=== PATIENT | female | born 2000 | race Caucasian/White ===

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

== ENCOUNTER 2019-01-14 22:01 | Emergency (ER) | payer OTHER ==
[~2019-01-14] VITALS: Ht 162.6 cm; Wt 54.5 kg
[2019-01-14 22:01] VITALS: BP 130/70
[~2019-01-14 22:01] MED LIST changes: +ACET30TAB PO; +COLA100C5 PO; +HYDR25OIN TOP
[2019-01-14] MEDS ORDERED: PRENTAB45 PO (22:42)
== END 2019-01-14 22:58 | disposition home or self-care (01) ==
LOC: M ED 22:01
DX: Z32.01 Encounter for pregnancy test, result positive (principal); Z87.891 Personal history of nicotine dependence; Z88.0 Allergy status to penicillin

== ENCOUNTER → 2019-01-30 | Outpatient (CLI) | payer OTHER ==
[~2019-01-30] MED LIST changes: +PRENTAB45 PO
--- NOTE | 2019-01-30 16:22 | REP ---
FIRST TRIMESTER ULTRASOUND: Real-time sonographic evaluation of the gravid uterus is performed utilizing transabdominal and endovaginal technique. There is a single living intrauterine gestation. The estimated gestational age is 6 weeks 3 days based on crown-rump length 6 mm. EDC 11/22/2018. heart rate 112 beats per minute. Subchorionic hemorrhage is identified, measuring 18 x 4 x 7 mm. Cystic structure of the left ovary probably represents a corpus luteum measuring 4.0 x 3.8 x 3.7 cm. There is no evidence of ovarian torsion with duplex Doppler evaluation. Electronically Signed by Ayo Hancock MD 01/30/2019 04:58 P
== END ==
LOC: M RAD 14:18
PROVIDERS: ATTEND Nurse Practitioner Family
DX: Z32.01 Encounter for pregnancy test, result positive (principal); Z3A.01 Less than 8 weeks gestation of pregnancy

== ENCOUNTER 2019-07-29 04:27 | Emergency (ER) | payer OTHER ==
[~2019-07-29] VITALS: Ht 162.6 cm; Wt 120.0 kg
[~2019-07-29 04:27] MED LIST changes: +ACET-716 PO; -ACET30TAB PO; +TRAZ1TAB10 PO; -TRAZO50TA PO
[2019-07-29] MEDS ORDERED: XANA1TAB2 PO (04:37)
[2019-07-29 06:34] VITALS: BP 104/55
== END 2019-07-29 06:37 | disposition home or self-care (01) ==
LOC: M ED 04:27
DX: F41.0 Panic disorder [episodic paroxysmal anxiety] (principal); Z63.0 Problems in relationship with spouse or partner; Z79.899 Other long term (current) drug therapy; Z88.0 Allergy status to penicillin

== ENCOUNTER 2019-07-30 00:10 | Emergency (ER) | payer OTHER ==
[~2019-07-30] VITALS: Ht 162.6 cm; Wt 54.1 kg
[~2019-07-30 00:10] MED LIST changes: +XANA1TAB2 PO
[2019-07-30 00:12] VITALS: BP 128/90
== END 2019-07-30 04:44 | disposition left against medical advice (07) ==
LOC: M ED 00:10
DX: Z53.29 Procedure and treatment not carried out because of patient's decision for other reasons (principal)

== ENCOUNTER 2019-11-14 10:30 | Emergency (ER) | payer MEDICAID, OTHER ==
[~2019-11-14] VITALS: Ht 162.6 cm; Wt 54.7 kg
[2019-11-14] MEDS ORDERED: ACETAMINOPHEN TAB 650MG DOSE (2X325MG) PO ONE (11:00)
[2019-11-14 11:44] LABS: INFLUENZA A AMPLIFICATION NEGATIVE (NEGATIVE); INFLUENZA B AMPLIFICATION POSITIVE (NEGATIVE)
[2019-11-14] MEDS ORDERED: OSEL75CA PO (12:04)
[2019-11-14 12:11] VITALS: BP 137/72
== END 2019-11-14 12:16 | disposition home or self-care (01) ==
LOC: M ED 10:30
DX: J10.89 Influenza due to other identified influenza virus with other manifestations (principal); F33.9 Major depressive disorder, recurrent, unspecified; Z88.0 Allergy status to penicillin; F17.200 Nicotine dependence, unspecified, uncomplicated

== ENCOUNTER → 2019-12-25 | Outpatient (REF) | payer OTHER ==
[~2019-12-25] MED LIST changes: +OSEL75CA PO
[2019-12-25 21:19] LABS: CHLAMYDIA DNA AMPLIFICATION NEGATIVE (NEGATIVE); GC DNA AMPLIFICATION NEGATIVE (NEGATIVE)
== END ==
LOC: M LAB REF 18:37
PROVIDERS: ATTEND Physician Assistant
DX: Z20.2 Contact with and (suspected) exposure to infections with a predominantly sexual mode of transmission (principal)

== ENCOUNTER → 2020-04-04 | Outpatient (REF) | payer OTHER ==
[2020-04-04 22:20] LABS: CHLAMYDIA DNA AMPLIFICATION POSITIVE (NEGATIVE); GC DNA AMPLIFICATION NEGATIVE (NEGATIVE)
== END ==
LOC: M LAB REF 19:49
PROVIDERS: ATTEND Physician Assistant Medical
DX: Z11.3 Encounter for screening for infections with a predominantly sexual mode of transmission (principal)

== ENCOUNTER → 2020-05-01 | Outpatient (REF) | payer OTHER ==
[2020-05-01 19:04] LABS: APPEARANCE, URINE HAZY (CLEAR); BACTERIA, URINE AUTO 1+ (NEGATIVE); BILIRUBIN, URINE AUTO NEGATIVE (NEGATIVE); BLOOD, URINE BLOOD NEGATIVE (NEGATIVE); COLOR, URINE YELLOW (YELLOW); GLUCOSE, URINE (UA) AUTO NEGATIVE (NEGATIVE); KETONE, URINE AUTO NEGATIVE (NEGATIVE); LEUKOCYTE ESTERASE, URINE AUTO 1+ (NEGATIVE); MUCUS, URINE SMALL (NEGATIVE); NITRITE, URINE AUTO NEGATIVE (NEGATIVE); PROTEIN, URINE AUTO NEGATIVE (NEGATIVE); RBC, URINE AUTO 1 /HPF (0-3); SPECIFIC GRAVITY URINE AUTO 1.025 (1.002-1.035); SQUAMOUS EPITHELIAL CELL UR AU 6 /HPF (0-6); WBC, URINE AUTO 17 /HPF (0-3)
== END ==
LOC: M LAB REF 17:39
PROVIDERS: ATTEND Physician Assistant Medical
DX: N39.0 Urinary tract infection, site not specified (principal)

== ENCOUNTER 2020-05-04 13:51 | Emergency (ER) | payer OTHER ==
[~2020-05-04] VITALS: Ht 162.6 cm; Wt 55.1 kg
[2020-05-04] MEDS ORDERED: NS 1,000 ML IV ONE (14:45)
[2020-05-04] MEDS ORDERED: KETOROLAC 30 MG/ML 1ML VIAL IV ONE (14:45)
[2020-05-04] MEDS ORDERED: ONDANSETRON 4MG/2ML VIAL IV ONE (14:45)
[2020-05-04] MEDS ORDERED: CIPROFLOXACIN 400 MG in IV 1 EA IV ONE (15:00)
[2020-05-04 15:18] LABS: BASO # 0.1 10^3/uL (0.0-0.2); BASO % 0.6 % (0.0-1.0); EOS # 0.1 10^3/uL (0.0-0.5); EOS % 0.9 % (0.0-3.0); HEMATOCRIT 42.7 % (36.0-47.0); HEMOGLOBIN 14.2 g/dl (12.0-15.5); LYMPH # 2.5 10^3/uL (1.5-5.0); LYMPH % 26.1 % (24.0-44.0); MEAN CORPUSCULAR HEMOGLOBIN 30.5 pg (27.0-33.0); MEAN CORPUSCULAR HGB CONC 33.3 g/dl (32.0-36.5); MEAN CORPUSCULAR VOLUME 91.6 fl (80.0-96.0); MONO # 0.9 10^3/uL (0.0-0.8); MONO % 9.3 % (0.0-5.0); NEUTROPHILS # 6.1 10^3/uL (1.5-8.5); NEUTROPHILS % 62.7 % (36.0-66.0); PLATELET COUNT, AUTOMATED 388 10^3/uL (150-450); RED BLOOD COUNT 4.66 10^6/uL (4.00-5.40); WHITE BLOOD COUNT 9.7 10^3/uL (4.0-10.0)
[2020-05-04] MEDS ORDERED: ISOVUE-370 76% 100ML VIAL As Ordered ONE (15:43)
[2020-05-04 15:45] LABS: ALBUMIN 4.3 GM/DL (3.2-5.2); BILIRUBIN,DIRECT 0.1 MG/DL (0.0-0.2); BILIRUBIN,TOTAL 0.4 MG/DL (0.2-1.0); TOTAL PROTEIN 7.8 GM/DL (6.4-8.2)
--- NOTE | 2020-05-04 16:34 | REP ---
CT ABDOMEN/PELVIS WITHOUT CONTRAST: HISTORY: Right-sided flank pain. No comparison study. CT FINDINGS: Digital preliminary biomedical specialist radiograph demonstrates a normal bowel gas pattern. Bilateral nipple jewelry is noted incidentally. There is a nodular opacity partially imaged at the uppermost slice in the imaging field of view in the left lower lobe of the lung. This measures 1.1 cm in diameter. It is not clear if it is a ground-glass opacity or a solid nodule and it is not completely imaged. Lung bases are otherwise clear on axial images. There is a calcified granulomatous lymph node adjacent to the esophagus in the diaphragmatic hiatus. This calcified lymph node measures 1.8 cm in greatest diameter. The liver and the spleen are normal in size, homogeneous in texture. No abnormalities noted in the gallbladder or within the pancreas. Normal adrenal glands are seen. No retroperitoneal mass is seen. There is a calcification in a normal-sized aortocaval lymph node in the upper retroperitoneum. No other rachell enlargement is seen. A retroverted retroflexed uterus is seen. No uterine or ovarian mass is seen. Urinary bladder is unremarkable. There is a tiny quantity of air in the urinary bladder, question recent instrumentation. There is a small cystic area in the right ovary 1.8 cm in diameter, consistent with an ovarian follicle. Normal appendix is seen posterior to the cecum deep in the pelvis. There is no evidence of obstruction or large or small bowel dilation. No evidence of free air is seen. The kidneys are morphologically intact. No intrarenal nephrolithiasis is seen. No hydronephrosis is noted. Bone window settings show no bony destructive lesion. IMPRESSION: Granulomatous calcific lymph node residuals at the diaphragmatic hiatus and in an aortocaval retroperitoneal lymph node. There is a nodular density incompletely seen in the left lower lobe of the lung at the top of the imaging field of view. This is consistent with a pulmonary nodule. Consider chest CT. Retroverted retroflexed uterus. Small follicle cyst, right ovary. Normal appendix. Otherwise negative. Electronically Signed by Yoni Cote MD 05/04/2020 05:12 P
[2020-05-04 17:38] LABS: BILIRUBIN, URINE MANUAL NEGATIVE (NEGATIVE); GLUCOSE, URINE (UA) MANUAL NEGATIVE (NEGATIVE); KETONE, URINE MANUAL NEGATIVE (NEGATIVE); UROBILINOGEN, URINE MANUAL NORMAL (NORMAL)
[2020-05-04 17:51] LABS: BACTERIA, URINE NONE SEEN; HYALINE CAST, URINE NONE SEEN /lpf (0-1); RBC, URINE NONE SEEN /hpf (0-3); SQUAMOUS EPITHELIAL CELL URINE NONE SEEN /hpf (SMALL AMT)
[2020-05-04 18:05] VITALS: BP 118/64
== END 2020-05-04 18:11 | disposition home or self-care (01) ==
LOC: M ED 13:51
DX: R11.2 Nausea with vomiting, unspecified (principal); R10.9 Unspecified abdominal pain; F33.9 Major depressive disorder, recurrent, unspecified; F41.9 Anxiety disorder, unspecified; Z88.0 Allergy status to penicillin
CPT/HCPCS: 74176; 80047; 80076; 81000; 81015; 83605; 83690; 84702; 85025; 87086; 96361; 96365; 99284; J0744

== ENCOUNTER → 2020-05-06 | Outpatient (REF) | payer OTHER ==
[2020-05-06 16:38] LABS: CHLAMYDIA DNA AMPLIFICATION NEGATIVE (NEGATIVE); GC DNA AMPLIFICATION NEGATIVE (NEGATIVE)
== END ==
LOC: M LAB REF 14:43
PROVIDERS: ATTEND Physician Assistant
DX: N89.8 Other specified noninflammatory disorders of vagina (principal); Z20.2 Contact with and (suspected) exposure to infections with a predominantly sexual mode of transmission

== ENCOUNTER → 2020-05-27 | Outpatient (REF) | payer OTHER ==
[2020-05-27 20:53] LABS: CHLAMYDIA DNA AMPLIFICATION NEGATIVE (NEGATIVE); GC DNA AMPLIFICATION NEGATIVE (NEGATIVE)
== END ==
LOC: M LAB REF 17:00
PROVIDERS: ATTEND Physician Assistant
DX: Z11.3 Encounter for screening for infections with a predominantly sexual mode of transmission (principal)

== ENCOUNTER → 2020-06-17 | Outpatient (CLI) | payer OTHER ==
--- NOTE | 2020-07-31 13:18 | REP ---
CT CHEST WITHOUT CONTRAST HISTORY: Incidental pulmonary nodule. Chest images taken during abdominal CT study 05/04/2020, showed an incompletely visualized nodular opacity in the left lower lobe. CT FINDINGS: Digital preliminary ostomy rn radiograph demonstrates a dextroconvex lower thoracic curvature. Nipple jewelry is noted. Axial CT images confirm the presence of a left lower lobe pulmonary nodule. This measures 1.5 cm in greatest diameter and is seen posteriorly. It contains a benign pattern of central calcification consistent with a granuloma. No other pulmonary nodule is appreciated. No hilar or mediastinal mass or adenopathy is observed. There are some granulomatous lymph node calcifications, however, in the subcarinal region just to the left of midline in the left infrahilar region and in a rachell calcific deposit at the gastroesophageal junction/diaphragmatic hiatus. No hilar mass or adenopathy is seen. No adrenal lesion observed. No bony destructive lesion is seen. IMPRESSION: Old granulomatous changes. Left lower lobe centrally calcified benign granuloma. Granulomatous lymph node calcifications. No active disease. Dextroconvex thoracic scoliosis noted incidentally. MTDD
== END ==
LOC: M RAD 09:30
PROVIDERS: ATTEND Student in an Organized Health Care Education/Training Program
DX: R91.1 Solitary pulmonary nodule (principal); M41.54 Other secondary scoliosis, thoracic region

== ENCOUNTER 2020-08-11 09:31 | Emergency (ER) | payer OTHER ==
[~2020-08-11] VITALS: Ht 162.6 cm; Wt 57.2 kg
[2020-08-11] MEDS ORDERED: NS 1,000 ML IV ONE (10:45)
[2020-08-11 11:45] LABS: BASO # 0.1 10^3/uL (0.0-0.2); BASO % 0.6 % (0.0-1.0); EOS # 0.2 10^3/uL (0.0-0.5); EOS % 1.8 % (0.0-3.0); HEMATOCRIT 35.9 % (36.0-47.0); HEMOGLOBIN 12.1 g/dl (12.0-15.5); LYMPH # 1.6 10^3/uL (1.5-5.0); LYMPH % 19.2 % (24.0-44.0); MEAN CORPUSCULAR HEMOGLOBIN 30.7 pg (27.0-33.0); MEAN CORPUSCULAR HGB CONC 33.7 g/dl (32.0-36.5); MEAN CORPUSCULAR VOLUME 91.1 fl (80.0-96.0); MONO # 0.7 10^3/uL (0.0-0.8); MONO % 8.4 % (0.0-5.0); NEUTROPHILS # 5.8 10^3/uL (1.5-8.5); NEUTROPHILS % 69.8 % (36.0-66.0); PLATELET COUNT, AUTOMATED 279 10^3/uL (150-450); RED BLOOD COUNT 3.94 10^6/uL (4.00-5.40); WHITE BLOOD COUNT 8.3 10^3/uL (4.0-10.0)
--- NOTE | 2020-08-11 12:38 | REPVR ---
PROCEDURE INFORMATION: Exam: US First Trimester, Transabdominal and US , Transvaginal Exam date and time: 08/11/2020 12:09 PM Age: 20 years old Clinical indication: Lmp or gestational age (in weeks): 5 weeks; Antepartum complications; Bleeding; ; Additional info: Vaginal bleeding TECHNIQUE: Imaging protocol: Real-time transabdominal obstetrical ultrasound of the maternal pelvis and a first trimester , less than 14 weeks 0 days, with image documentation. Transvaginal imaging was used for better evaluation of the fetus and adnexa. COMPARISON: No relevant prior studies available. FINDINGS: Gestation: No intrauterine gestation was identified. MATERNAL: Uterus: The uterus measures 9.0 x 4.5 x 5.5 cm transabdominally and 8.7 x 5.1 x 5.6 cm transvaginally. It is homogeneous in echotexture, without demonstrated lesion. The endometrium measures 8 mm in thickness transabdominally and 14 mm in thickness transvaginally. Cervix: Unremarkable. Right adnexa: The right ovary measures 2.7 x 1.6 x 1.7 cm transabdominally and 1.8 x 2.0 x 1.8 cm transvaginally, and appears unremarkable. Left adnexa: The left ovary measures 1.9 x 2.7 x 1.9 cm transabdominally and 2.7 x 1.8 x 1.2 cm transvaginally, and appears unremarkable. Intraperitoneal space: No significant free fluid is demonstrated in the pelvis, nor is any extraovarian adnexal mass. IMPRESSION: 1. No intrauterine or extrauterine gestation identified. 2. Endometrium 14 mm in thickness. Electronically signed by: Cuong Amado On 08/11/2020 12:38:35 PM
[2020-08-11 13:03] LABS: CHLAMYDIA DNA AMPLIFICATION NEGATIVE (NEGATIVE); GC DNA AMPLIFICATION NEGATIVE (NEGATIVE)
[2020-08-11 13:13] VITALS: BP 113/55
== END 2020-08-11 13:39 | disposition home or self-care (01) ==
LOC: M ED 09:31
DX: O36.80X0 Pregnancy with inconclusive fetal viability, not applicable or unspecified (principal); O26.851 Spotting complicating pregnancy, first trimester; Z88.0 Allergy status to penicillin; Z3A.01 Less than 8 weeks gestation of pregnancy

== ENCOUNTER → 2020-09-02 | Outpatient (REF) | payer OTHER ==
[2020-09-02 22:09] LABS: AMORPHOUS SEDIMENT SMALL (NEGATIVE); APPEARANCE, URINE CLOUDY (CLEAR); BACTERIA, URINE AUTO 1+ (NEGATIVE); BILIRUBIN, URINE AUTO NEGATIVE (NEGATIVE); BLOOD, URINE BLOOD NEGATIVE (NEGATIVE); COLOR, URINE YELLOW (YELLOW); GLUCOSE, URINE (UA) AUTO NEGATIVE (NEGATIVE); KETONE, URINE AUTO NEGATIVE (NEGATIVE); LEUKOCYTE ESTERASE, URINE AUTO 2+ (NEGATIVE); MUCUS, URINE SMALL (NEGATIVE); NITRITE, URINE AUTO NEGATIVE (NEGATIVE); PROTEIN, URINE AUTO NEGATIVE (NEGATIVE); RBC, URINE AUTO 2 /HPF (0-3); SQUAMOUS EPITHELIAL CELL UR AU 12 /HPF (0-6); UROBILINOGEN, URINE AUTO 0.2 mg/dL (0.0-2.0); WBC, URINE AUTO 5 /HPF (0-3)
== END ==
LOC: M LAB REF 21:47
PROVIDERS: ATTEND Physician Assistant
DX: N39.0 Urinary tract infection, site not specified (principal); A74.9 Chlamydial infection, unspecified; B00.9 Herpesviral infection, unspecified

== ENCOUNTER 2020-11-28 02:04 | Emergency (ER) | payer OTHER ==
[2020-11-28 02:29] VITALS: BP 130/76
--- NOTE | 2020-11-28 03:14 | REPVR ---
PROCEDURE INFORMATION: Exam: XR Left Tibia and Fibula Exam date and time: 11/28/2020 2:33 AM Age: 20 years old Clinical indication: Pain; Ankle; Left; Additional info: FX? TECHNIQUE: Imaging protocol: XR Left tibia and fibula. Views: 2 views. COMPARISON: No relevant prior studies available. FINDINGS: Bones/joints: Normal. Soft tissues: Normal. IMPRESSION: No acute findings. Electronically signed by: Srini Mccormick On 11/28/2020 03:14:28 AM
--- NOTE | 2020-11-28 03:14 | REPVR ---
PROCEDURE INFORMATION: Exam: XR Left Ankle Exam date and time: 11/28/2020 2:33 AM Age: 20 years old Clinical indication: Pain; Ankle; Left; Additional info: FX? TECHNIQUE: Imaging protocol: XR Left ankle. Views: 3 or more views. COMPARISON: No relevant prior studies available. FINDINGS: Bones/joints: Normal. Soft tissues: Normal. IMPRESSION: No acute findings. Electronically signed by: Srini Mccormick On 11/28/2020 03:13:57 AM
== END 2020-11-28 03:07 | disposition home or self-care (01) ==
LOC: M ED 02:04
DX: S93.402A Sprain of unspecified ligament of left ankle, initial encounter (principal); X58.XXXA Exposure to other specified factors, initial encounter; Y92.410 Unspecified street and highway as the place of occurrence of the external cause; Z88.0 Allergy status to penicillin

== ENCOUNTER → 2021-03-15 | Outpatient (REF) | payer OTHER | LOC: M LAB REF 17:08 | PROVIDERS: ATTEND Physician Assistant Medical | DX: Z20.2 Contact with and (suspected) exposure to infections with a predominantly sexual mode of transmission (principal) ==

== ENCOUNTER → 2021-05-25 | Outpatient (CLI) | payer OTHER ==
--- NOTE | 2021-05-25 18:27 | REPVR ---
PROCEDURE INFORMATION: Exam: CT Head Without Contrast Exam date and time: 05/25/2021 5:35 PM Age: 21 years old Clinical indication: Other: Nicolas judith of orbit dermoid cyst TECHNIQUE: Imaging protocol: Computed tomography of the head without contrast. Axial and coronal reformatted images were created and reviewed. Radiation optimization: All CT scans at this facility use at least one of these dose optimization techniques: automated exposure control; mA and/or kV adjustment per patient size (includes targeted exams where dose is matched to clinical indication); or iterative reconstruction. COMPARISON: CT Spine,cervical w/o contrast 12/31/2014 6:43 PM FINDINGS: Brain: No CT evidence of acute intracranial hemorrhage or acute territorial infarction. No significant mass effect or midline shift. Basal cisterns patent. Cerebral ventricles: Normal in size and configuration. Paranasal sinuses: Mild polypoid right ethmoid, right frontal and right sphenoid sinus mucosal thickening. Mastoid air cells: Grossly unremarkable. Bones/joints: No acute osseous abnormality. Soft tissues: 1 x 0.8 cm ovoid, fat density lesion overlying the right anterior zygoma (series 201, image 4), possibly secondary to a superficial dermoid cyst. IMPRESSION: 1. 1 x 0.8 cm ovoid, fat density lesion overlying the right anterior zygoma, possibly secondary to a superficial dermoid cyst. 2. Additional findings, as above. Electronically signed by: Cuong Beltran On 05/25/2021 18:26:59 PM
--- NOTE | 2021-05-25 18:27 | REPVR ---
PROCEDURE INFORMATION: Exam: CT Orbits Without Contrast Exam date and time: 05/25/2021 5:35 PM Age: 21 years old Clinical indication: Other: Nicolas judith of orbit dermoid cyst TECHNIQUE: Imaging protocol: Computed tomography images of the orbits without contrast. Axial, coronal and sagittal reformatted images were created and reviewed. Radiation optimization: All CT scans at this facility use at least one of these dose optimization techniques: automated exposure control; mA and/or kV adjustment per patient size (includes targeted exams where dose is matched to clinical indication); or iterative reconstruction. COMPARISON: CT Spine,cervical w/o contrast 12/31/2014 6:43 PM FINDINGS: Orbital cavity: Orbits are normal. Globes are unremarkable. Paranasal sinuses: Mild polypoid right ethmoid, right frontal and right sphenoid sinus mucosal thickening. Bones/joints: No acute fracture. Soft tissues: 1 x 0.8 cm ovoid, fat density lesion overlying the right anterior zygoma (series 201, image 4), possibly secondary to a superficial dermoid cyst. IMPRESSION: 1. 1 x 0.8 cm ovoid, fat density lesion overlying the right anterior zygoma, possibly secondary to a superficial dermoid cyst. 2. Additional findings, as above. Electronically signed by: Cuong Beltran On 05/25/2021 18:27:10 PM
== END ==
LOC: M RAD 17:18
PROVIDERS: ATTEND Physician Assistant
DX: D31.61 Benign neoplasm of unspecified site of right orbit (principal)

== ENCOUNTER 2021-06-27 04:17 | Emergency (ER) | payer OTHER ==
[~2021-06-27] VITALS: Ht 162.6 cm; Wt 53.6 kg
[2021-06-27 04:36] VITALS: BP 120/55
[2021-06-27 05:34] LABS: MEAN CORPUSCULAR HEMOGLOBIN 30.1 pg (27.0-33.0); MEAN CORPUSCULAR HGB CONC 34.2 g/dl (32.0-36.5); PLATELET COUNT, AUTOMATED 295 10^3/uL (150-450); RED BLOOD COUNT 4.32 10^6/uL (4.00-5.40); WHITE BLOOD COUNT 6.9 10^3/uL (4.0-10.0)
[2021-06-27 05:55] LABS: AMPHETAMINES LEVEL URINE NEGATIVE (NEGATIVE); BARBITURATES URINE NEGATIVE (NEGATIVE); BENZODIAZEPINES URINE NEGATIVE (NEGATIVE); CANNABINOIDS URINE NEGATIVE (NEGATIVE); COCAINE METABOLITE URINE NEGATIVE (NEGATIVE); METHADONE URINE NEGATIVE (NEGATIVE); OPIATES URINE NEGATIVE (NEGATIVE); PHENCYCLIDINE URINE NEGATIVE (NEGATIVE)
[2021-06-27 06:05] LABS: ACETAMINOPHEN LEVEL < 2.0 UG/ML (10.0-30.0); ALBUMIN 3.9 GM/DL (3.2-5.2); ALT/SGPT 23 U/L (12-78); BILIRUBIN,DIRECT < 0.1 MG/DL (0.0-0.2); BILIRUBIN,TOTAL 0.3 MG/DL (0.2-1.0); BLOOD UREA NITROGEN 8 MG/DL (7-18); CALCIUM LEVEL 8.5 MG/DL (8.5-10.1); CARBON DIOXIDE LEVEL 23 MEQ/L (21-32); CHLORIDE LEVEL 112 MEQ/L (98-107); CREATININE FOR GFR 0.59 MG/DL (0.55-1.30); ETHYL ALCOHOL (ETHANOL) 0.093 % (0.000-0.010); GLOMERULAR FILTRATION RATE > 60.0 (>60); GLUCOSE, FASTING 114 MG/DL (70-100); POTASSIUM SERUM 3.8 MEQ/L (3.5-5.1); SALICYLATE LEVEL < 1.7 MG/DL (5.0-30.0); SODIUM LEVEL 141 MEQ/L (136-145); TOTAL PROTEIN 7.3 GM/DL (6.4-8.2)
[2021-06-27 06:12] LABS: HCG, SERUM QUALITATIVE NEGATIVE (NEGATIVE)
== END 2021-06-27 09:22 | disposition home or self-care (01) ==
LOC: M ED 04:17
DX: F10.14 Alcohol abuse with alcohol-induced mood disorder (principal); Y90.0 Blood alcohol level of less than 20 mg/100 ml; F43.20 Adjustment disorder, unspecified

== ENCOUNTER 2022-07-24 21:09 | Emergency (ER) | payer OTHER ==
[~2022-07-24] VITALS: Ht 162.6 cm; Wt 57.3 kg
[2022-07-24] MEDS ORDERED: IBUP200C25 PO (21:29)
[2022-07-24 21:55] LABS: BASO % 0.4 % (0.0-1.0); EOS # 0.2 10^3/uL (0.0-0.5); EOS % 2.5 % (0.0-3.0); HEMATOCRIT 29.6 % (36.0-47.0); HEMOGLOBIN 10.1 g/dl (12.0-15.5); LYMPH % 21.9 % (24.0-44.0); MEAN CORPUSCULAR HEMOGLOBIN 30.7 pg (27.0-33.0); MEAN CORPUSCULAR HGB CONC 34.1 g/dl (32.0-36.5); MONO # 0.7 10^3/uL (0.0-0.8); MONO % 7.5 % (2.0-8.0); NEUTROPHILS # 6.1 10^3/uL (1.5-8.5); NEUTROPHILS % 67.1 % (36.0-66.0); PLATELET COUNT, AUTOMATED 314 10^3/uL (150-450); RED BLOOD COUNT 3.29 10^6/uL (4.00-5.40); WHITE BLOOD COUNT 9.1 10^3/uL (4.0-10.0)
[2022-07-24 22:34] LABS: ALBUMIN 3.5 GM/DL (3.2-5.2); ALT/SGPT 19 U/L (12-78); BILIRUBIN,TOTAL 0.6 MG/DL (0.2-1.0); BLOOD UREA NITROGEN 11 MG/DL (7-18); CALCIUM LEVEL 8.7 MG/DL (8.5-10.1); CARBON DIOXIDE LEVEL 24 MEQ/L (21-32); CHLORIDE LEVEL 108 MEQ/L (98-107); CREATININE FOR GFR 0.66 MG/DL (0.55-1.30); GLOMERULAR FILTRATION RATE > 60.0 (>60); GLUCOSE, FASTING 83 MG/DL (70-100); POTASSIUM SERUM 3.6 MEQ/L (3.5-5.1); SODIUM LEVEL 139 MEQ/L (136-145); TOTAL PROTEIN 7.1 GM/DL (6.4-8.2)
[2022-07-24] MEDS ORDERED: ACETAMINOPHEN TAB 650MG DOSE (2X325MG) PO ONE (22:50)
[2022-07-24] MEDS ORDERED: NS 1,000 ML IV ONE (23:05)
[2022-07-25] VITALS: BP 118/63
[2022-07-25] MEDS ORDERED: medroxyPROGESTERone 5MG TABLET PO STA (00:36)
[2022-07-25] MEDS ORDERED: PROV10TA PO (00:42)
[2022-07-25] MEDS ORDERED: traMADol 50 MG TAB (HOME DOSE PACK) PO ONE (00:55)
== END 2022-07-25 01:26 | disposition home or self-care (01) ==
LOC: M ED 21:09
DX: R93.89 Abnormal findings on diagnostic imaging of other specified body structures (principal); N89.9 Noninflammatory disorder of vagina, unspecified; Z88.0 Allergy status to penicillin

== ENCOUNTER → 2022-11-15 | Outpatient (REF) | payer OTHER ==
[~2022-11-15] MED LIST changes: +IBUP200C25 PO; +PROV10TA PO
[2022-11-15 18:20] LABS: GC DNA AMPLIFICATION NEGATIVE (NEGATIVE)
[2022-11-15 18:44] LABS: APPEARANCE, URINE MANUAL CLOUDY (CLEAR); COLOR, URINE MANUAL YELLOW (YELLOW)
[2022-11-15 18:45] LABS: BILIRUBIN, URINE MANUAL NEGATIVE (NEGATIVE); BLOOD URINE MANUAL POSITIVE (NEGATIVE); GLUCOSE, URINE (UA) MANUAL NEGATIVE (NEGATIVE); KETONE, URINE MANUAL 1+ mg/dL (NEGATIVE); LEUKOCYTE ESTERASE, URINE MAN POSITIVE (NEGATIVE); NITRITE, URINE MANUAL NEGATIVE (NEGATIVE); PROTEIN, URINE MANUAL TRACE mg/dL (NEGATIVE); SPECIFIC GRAVITY,URINE MANUAL 1.025 (1.002-1.035); UROBILINOGEN, URINE MANUAL NORMAL (NORMAL)
[2022-11-15 19:25] LABS: BACTERIA, URINE LARGE AMOUNT; CALCIUM OXALATE CRYSTALS,URINE SMALL AMOUNT /hpf; HYALINE CAST, URINE NONE SEEN /lpf (0-1); MUCUS, URINE SMALL AMOUNT (NEGATIVE); SQUAMOUS EPITHELIAL CELL URINE MOD AMOUNT /hpf (SMALL AMT); WBC, URINE 40-50 /hpf (0-3)
== END ==
LOC: M LAB REF 16:27
PROVIDERS: ATTEND Physician Assistant
DX: N39.0 Urinary tract infection, site not specified (principal)

== ENCOUNTER → 2023-06-20 | Outpatient (CLI) | payer OTHER ==
[2023-06-20 13:48] LABS: HEMATOCRIT 36.9 % (36.0-47.0); HEMOGLOBIN 12.4 g/dl (12.0-15.5); MEAN CORPUSCULAR HEMOGLOBIN 30.5 pg (27.0-33.0); MEAN CORPUSCULAR HGB CONC 33.6 g/dl (32.0-36.5); MEAN CORPUSCULAR VOLUME 90.7 fl (80.0-96.0); PLATELET COUNT, AUTOMATED 263 10^3/uL (150-450); RED BLOOD COUNT 4.07 10^6/uL (4.00-5.40); WHITE BLOOD COUNT 8.4 10^3/uL (4.0-10.0)
[2023-06-20 15:00] LABS: GC DNA AMPLIFICATION NEGATIVE (NEGATIVE)
[2023-06-20 15:29] LABS: HEPATITIS C VIRUS ABY INDEX 0.12 INDEX (<0.8); HIV 1&2 SCREEN NEGATIVE (NEGATIVE)
== END ==
LOC: M PLALAB 11:01
PROVIDERS: ATTEND Specialist
DX: Z34.81 Encounter for supervision of other normal pregnancy, first trimester (principal)

== ENCOUNTER → 2023-07-18 | Outpatient (CLI) | payer OTHER | LOC: M PLALAB 10:38 | PROVIDERS: ATTEND Obstetrics & Gynecology | DX: Z34.82 Encounter for supervision of other normal pregnancy, second trimester (principal) ==

== ENCOUNTER → 2023-08-22 | Outpatient (CLI) | payer OTHER | LOC: M WHC 10:23 | PROVIDERS: ATTEND Obstetrics & Gynecology | DX: Z34.92 Encounter for supervision of normal pregnancy, unspecified, second trimester (principal); Z3A.18 18 weeks gestation of pregnancy ==

== ENCOUNTER → 2023-10-18 | Outpatient (CLI) | payer OTHER ==
[2023-10-18 16:09] LABS: BASO % 0.4 % (0.0-1.0); EOS # 0.2 10^3/uL (0.0-0.5); EOS % 2.4 % (0.0-3.0); HEMATOCRIT 29.6 % (36.0-47.0); HEMOGLOBIN 9.8 g/dl (12.0-15.5); LYMPH # 1.3 10^3/uL (1.5-5.0); MEAN CORPUSCULAR HGB CONC 33.1 g/dl (32.0-36.5); MEAN CORPUSCULAR VOLUME 90.5 fl (80.0-96.0); MONO # 0.7 10^3/uL (0.0-0.8); MONO % 9.4 % (2.0-8.0); NEUTROPHILS # 4.7 10^3/uL (1.5-8.5); NEUTROPHILS % 67.1 % (36.0-66.0); PLATELET COUNT, AUTOMATED 257 10^3/uL (150-450); RED BLOOD COUNT 3.27 10^6/uL (4.00-5.40); WHITE BLOOD COUNT 7.1 10^3/uL (4.0-10.0)
[2023-10-18 18:48] LABS: CHLAMYDIA DNA AMPLIFICATION NEGATIVE (NEGATIVE); GC DNA AMPLIFICATION NEGATIVE (NEGATIVE)
== END ==
LOC: M PLALAB 11:15
PROVIDERS: ATTEND Obstetrics & Gynecology
DX: Z34.82 Encounter for supervision of other normal pregnancy, second trimester (principal); Z3A.00 Weeks of gestation of pregnancy not specified

== ENCOUNTER 2023-11-04 00:34 | Outpatient (CLI) | payer OTHER ==
[~2023-11-04] VITALS: Ht 162.6 cm; Wt 67.0 kg
[~2023-11-04 00:34] MED LIST changes: +CEPH500C PO
[2023-11-04 00:52] VITALS: BP 117/61
[2023-11-04] MEDS ORDERED: LR 1,000 ML IV ONE (01:50)
[2023-11-04] MEDS ORDERED: HOME MED LIST COMPLETE! XX SCH (02:40)
== END 2023-11-04 04:19 | disposition home or self-care (01) ==
LOC: M LDO 00:34
PROVIDERS: ATTEND Advanced Practice Midwife
DX: O23.593 Infection of other part of genital tract in pregnancy, third trimester (principal); A04.0 Enteropathogenic Escherichia coli infection; Z3A.29 29 weeks gestation of pregnancy; Z88.0 Allergy status to penicillin
CPT/HCPCS: 59025; 81001; G0463

== ENCOUNTER → 2023-11-16 | Outpatient (CLI) | payer OTHER ==
[2023-11-16 19:04] LABS: ALBUMIN 2.7 G/DL (3.2-5.2); ALKALINE PHOSPHATASE 155 U/L (46-116); ALT/SGPT 156 U/L (7.0-40); AST/SGOT 115 U/L (<34); BILIRUBIN,TOTAL 0.6 MG/DL (0.3-1.2); BLOOD UREA NITROGEN 8 MG/DL (9-23); CALCIUM LEVEL 8.6 MG/DL (8.5-10.1); CARBON DIOXIDE LEVEL 24 MMOL/L (20-31); CHLORIDE LEVEL 107 MMOL/L (98-107); CREATININE FOR GFR 0.43 MG/DL (0.55-1.30); GLOMERULAR FILTRATION RATE > 60.0 (>60); GLUCOSE, FASTING 85 MG/DL (60-100); POTASSIUM SERUM 3.6 MMOL/L (3.5-5.1); SODIUM LEVEL 137 MMOL/L (136-145); TOTAL PROTEIN 6.3 G/DL (5.7-8.2)
== END ==
LOC: M PLALAB 15:16
PROVIDERS: ATTEND Advanced Practice Midwife
DX: O99.713 Diseases of the skin and subcutaneous tissue complicating pregnancy, third trimester (principal)

== ENCOUNTER → 2023-12-01 | Outpatient (CLI) | payer OTHER | LOC: M WHC 11:56 | PROVIDERS: ATTEND Advanced Practice Midwife | DX: O26.613 Liver and biliary tract disorders in pregnancy, third trimester (principal); Z3A.32 32 weeks gestation of pregnancy ==

== ENCOUNTER → 2023-12-07 | Outpatient (REF) | payer OTHER | LOC: M LAB REF 12:53 → M SFHCWAGY 12:53 → M LAB REF 12-08 12:53 | PROVIDERS: ATTEND Advanced Practice Midwife | DX: O26.613 Liver and biliary tract disorders in pregnancy, third trimester (principal) ==

== ENCOUNTER → 2023-12-07 | Outpatient (CLI) | payer OTHER | LOC: M WHC 12:30 | PROVIDERS: ATTEND Advanced Practice Midwife | DX: O26.613 Liver and biliary tract disorders in pregnancy, third trimester (principal) ==

== ENCOUNTER 2023-12-12 11:28 | Outpatient (CLI) | payer OTHER ==
[~2023-12-12] VITALS: Ht 162.6 cm; Wt 69.5 kg
[2023-12-12 11:45] VITALS: BP 124/56; O2SAT 99
[2023-12-12] MEDS: IRON SUCROSE 500 MG in NS 250 ML OVER 4 HRS IV ONE (12:23)
[2023-12-12 13:30] VITALS: BP 111/54; O2SAT 100
[2023-12-12 14:30] VITALS: BP 98/49; O2SAT 100
[2023-12-12 15:30] VITALS: BP 97/53; O2SAT 100
[2023-12-12 16:35] VITALS: BP 109/54; O2SAT 100
== END 2023-12-12 16:35 | disposition home or self-care (01) ==
LOC: M INFU 11:28
PROVIDERS: ATTEND Advanced Practice Midwife
DX: D64.9 Anemia, unspecified (principal); Z88.0 Allergy status to penicillin
CPT/HCPCS: 96365; 96366; J1756

== ENCOUNTER → 2024-03-19 | Outpatient (REF) | payer OTHER ==
[~2024-03-19] MED LIST changes: +CEPH500C; +FERR32TA; +ONDA-282 PO; -ONDA4TAB6 PO; +URSO300C3
[2024-03-19 14:41] LABS: Trichomonas vaginalis (AMP) NOT DETECTED (NEGATIVE)
[2024-03-19 15:03] LABS: GC DNA AMPLIFICATION NEGATIVE (NEGATIVE)
[2024-03-26 07:09] LABS: HPV APTIMA Negative (Negative)
== END ==
LOC: M SFHCWAGY 12:50
PROVIDERS: ATTEND Obstetrics & Gynecology
DX: Z12.4 Encounter for screening for malignant neoplasm of cervix (principal); R87.610 Atypical squamous cells of undetermined significance on cytologic smear of cervix (ASC-US)

== ENCOUNTER → 2025-02-11 | Outpatient (REF) | payer OTHER | LOC: M LAB REF 21:12 | PROVIDERS: ATTEND Physician Assistant Medical | DX: B34.9 Viral infection, unspecified (principal) ==